=== PATIENT | female | born 1970 | race Caucasian/White ===

== ENCOUNTER 2018-09-10 18:45 | Emergency (ER) | payer BC ==
[2018-09-10 18:55] VITALS: BP 138/82
[2018-09-10] MEDS ORDERED: Al Hydrox/Mg Hydrox/Simet LIQ* 30 ML UDC PO ONE (19:05)
[2018-09-10] MEDS ORDERED: Lidocaine 2% VISCOUS* 15 ML UDC PO ONE (19:05)
--- NOTE | 2018-09-10 19:37 | ED ---
Abdominal Pain/Female - HPI Summary HPI Summary: Ms. Hanson presents with about 22 hours of abdominal pain. It comes in waves of pain that last a few seconds and are coming every 5 minutes. She points to her epigastrium. She has been nauseated with this. She tried to eat earlier today but vomited immediately. She's not had any change in bowels or bladder she has no history of surgery or medications. - History of Current Complaint Chief Complaint: UCAbdominalPain Stated Complaint: ABD PAIN Time Seen by Provider: 09/10/18 18:53 Hx Obtained From: Patient Hx Last Menstrual Period: 2 WEEKS AGO Onset/Duration: Gradual Onset Severity Initially: Mild Severity Currently: Moderate - He doesn't use Pain Intensity: 3 Aggravating Factor(s): Food Alleviating Factor(s): Nothing Associated Signs and Symptoms: Positive: Negative Allergies/Adverse Reactions: Allergies Allergy/AdvReac Type Severity Reaction Status Date / Time No Known Allergies Allergy Verified 09/10/18 18:54 Home Medications: Home Medications NK [No Home Medications Reported] 09/10/18 [History Confirmed 09/10/18] PMH/Surg Hx/FS Hx/Imm Hx - Cancer History Hx Chemotherapy: No Hx Radiation Therapy: No Infectious Disease History: No Infectious Disease History: Denies: Traveled Outside the [place] in Last 30 Days - Social History Alcohol Use: Occasionally Substance Use Type: Reports: None Smoking Status (MU): Never Smoked Tobacco Review of Systems Constitutional: Negative Respiratory: Negative Positive: Abdominal Pain, Vomiting, Nausea Genitourinary: Negative Skin: Negative Neurological: Negative Psychological: Normal All Other Systems Reviewed And Are Negative: Yes Physical Exam - Summary Physical Exam Summary: .She is non-toxic in appearance with stable vitals signs. Triage Information Reviewed: Yes Vital Signs On Initial Exam: Initial Vitals Temp Pulse Resp BP Pulse Ox 95.2 F 76 16 138/82 100 09/10/18 18:51 09/10/18 18:51 09/10/18 18:51 09/10/18 18:51 09/10/18 18:51 Vital Signs Reviewed: Yes Appearance: Positive: Well-Appearing, Pain Distress - periodically Skin: Positive: Warm, Dry Eyes: Positive: Normal ENT: Positive: Normal ENT inspection Neck: Positive: Supple Respiratory/Lung Sounds: Positive: Clear to Auscultation Cardiovascular: Positive: Normal, Pulses are Symmetrical in both Upper and Lower Extremities Abdomen Description: Positive: Other: - She had only mild tenderness in the epigastrium and LUQ. Malik's was negative. BS's were normal. Bowel Sounds: Positive: Present Musculoskeletal: Positive: Normal Neurological: Positive: Normal Diagnostics - Vital Signs Vital Signs Temp Pulse Resp BP Pulse Ox 09/10/18 18:51 95.2 F 76 16 138/82 100 - Laboratory Lab Statement: Any lab studies that have been ordered have been reviewed, and results considered in the medical decision making process. Abdominal Pain Fem Course/Dx - Course Course Of Treatment: Ms. Hanson presented with 22 hours of abdominal pain. I let her know that there is very little we could do here for abdominal pain but I would try to give her a GI cocktail to see if it improved her symptoms. It did not improve her pain a bit and I recommended strongly that she go to the emergency department for further evaluation. Her description is consistent with a gallbladder problem but her exam is not. She is tender in the abdomen and I do not think this is a cardiac event. - Diagnoses Provider Diagnoses: Abdominal pain Discharge - Sign-Out/Discharge Documenting (check all that apply): Patient Departure All imaging exams completed and their final reports reviewed: No Studies - Discharge Plan Condition: Stable Disposition: HOME-RECOMMEND TO ED Patient Education Materials: Acute Abdominal Pain (ED) Referrals: Clarke Perea MD [Primary Care Provider] - Additional Instructions: Please go directly to the Emergency Department for further evaluation. - Billing Disposition and Condition Condition: STABLE Disposition: Home-Recommend to ED
== END 2018-09-10 19:55 | disposition home health service (06) ==
LOC: UCEAST 18:45
DX: R10.9 Unspecified abdominal pain (principal); R11.2 Nausea with vomiting, unspecified
CPT/HCPCS: 99212; A9270-GY; G0463

== ENCOUNTER 2018-09-10 20:16 | Inpatient (IN) | payer BC ==
[2018-09-10] MEDS ORDERED: Ondansetron INJ* 2 MG/ML VIAL IV ONE (20:40)
[2018-09-10] MEDS ORDERED: Morphine VIAL* 4 MG/ML VIAL (1 ml vial) IV ONE (20:40)
--- NOTE | 2018-09-10 20:46 | ED ---
Abdominal Pain/Female - HPI Summary HPI Summary: This patient is a 48 year old F presenting to [facility] accompanied by her with a chief complaint of worsening, intermittent sharp abdominal pain since 21: 00 yesterday. The patient rates the pain 9/10 in severity. Patient reports nausea, vomiting, difficulty sleeping, difficulty eating, and edema of the abdomen. Patient denies fever, dysuria, hematuria, difficulties passing stool, or CP. She was watching tv when her abd pain began, she felt normal beforehand. The pain continued throughout the night and kept her awake. The patient has not felt like this before. PMHX tonsil removal, nothing else. No PMHx abdominal surgery, abdominal complications. SHX works at an office, 4 children. RX none. NKDA. - History of Current Complaint Chief Complaint: EDAbdPain Stated Complaint: ABD PAIN Time Seen by Provider: 09/10/18 20:27 Hx Obtained From: Patient Hx Last Menstrual Period: 2 WEEKS AGO Onset/Duration: Sudden Onset, Lasting Days - 1 Timing: Intermittent Episode Lasting - a couple minutes to 30 minutes Severity Initially: Severe Severity Currently: Severe Pain Intensity: 9 Pain Scale Used: 0-10 Numeric Location: Diffuse Character: Sharp Associated Signs and Symptoms: Positive: Decreased Appetite, Nausea, Vomiting. Negative: Fever, Chest Pain Allergies/Adverse Reactions: Allergies Allergy/AdvReac Type Severity Reaction Status Date / Time No Known Allergies Allergy Verified 09/10/18 18:54 PMH/Surg Hx/FS Hx/Imm Hx Previously Healthy: Yes - SAYS SHE HAS NO HISTORY - Cancer History Hx Chemotherapy: No Hx Radiation Therapy: No Infectious Disease History: No Infectious Disease History: Denies: Traveled Outside the [place] in Last 30 Days - Family History Known Family History: Negative: Cardiac Disease - Social History Alcohol Use: Occasionally Substance Use Type: Reports: None Smoking Status (MU): Never Smoked Tobacco Review of Systems Negative: Fever Negative: Chest Pain Positive: Vomiting, Nausea Negative: dysuria, hematuria Positive: Edema - abd Neurological: Other - difficulty sleeping All Other Systems Reviewed And Are Negative: Yes Physical Exam - Summary Physical Exam Summary: Appearance: Well-appearing, Well-nourished, lying in bed comfortably Skin: Warm, dry, no obvious rash Eyes: sclera anicteric, no conjunctival pallor ENT: mucous membranes moist, pharynx appears normal Neck: Supple, nontender Respiratory: Clear to auscultation, no signs of respiratory distress Cardiovascular: Normal S1, S2. No murmurs. Normal distal pulses in tibial and radial bilaterally. Abdomen: Soft, NO active bowel sounds present. Abdomen is somewhat distended and diffusely tender. There is mild guarding and no rebound. Musculoskeletal: Normal, Strength/ROM Intact Neurological: A&Ox3, awake and alert, mentation is normal, speech is fluent and appropriate Psychiatric: affect is normal, does not appear anxious or depressed Triage Information Reviewed: Yes Vital Signs On Initial Exam: Initial Vitals Temp Pulse Resp BP Pulse Ox 97.9 F 74 20 101/66 99 09/10/18 20:20 09/10/18 20:20 09/10/18 20:20 09/10/18 20:20 09/10/18 20:20 Vital Signs Reviewed: Yes Diagnostics - Vital Signs Vital Signs Temp Pulse Resp BP Pulse Ox 09/10/18 20:20 97.9 F 74 20 101/66 99 - Laboratory Result Diagrams: 09/11/18 05:09 09/11/18 05:09 Lab Statement: Any lab studies that have been ordered have been reviewed, and results considered in the medical decision making process. Abdominal Pain Fem Course/Dx - Course Course Of Treatment: This patient is a 48 year old F presenting to [facility] accompanied by her with a chief complaint of worsening, intermittent sharp abdominal pain since 21:00 yesterday. The patient rates the pain 9/10 in severity. Patient reports nausea, vomiting, difficulty sleeping, difficulty eating, and edema of the abdomen. Patient denies fever, dysuria, hematuria, difficulties passing stool, or CP. Test results with no significant abnormalities. In the ED course the patient was given Morphine, Ondansetron, and IV fluids. The patient will be signed out by Dr. Mane to Dr. Paz, awaiting CT and urinalysis results. - Diagnoses Provider Diagnoses: Terminal ileitis, Small bowel obstruction Discharge - Sign-Out/Discharge Documenting (check all that apply): Sign-Out Patient Signing out patient TO: Sean Paz - Discharge Plan Condition: Improved Disposition: ADMITTED TO [facility] - Billing Disposition and Condition Condition: IMPROVED Disposition: Admitted to [facility] - Attestation Statements Document Initiated by Scribe: Yes Documenting Scribe: Geronimo Esquivel Provider For Whom Scribe is Documenting (Include Credential): Miki Mane MD Scribe Attestation: I, Geronimo Esquivel, scribed for Miki Mane MD on 09/11/18 at 1826. Scribe Documentation Reviewed: Yes Provider Attestation: The documentation as recorded by the scribe, Geronimo Esquivel accurately reflects the service I personally performed and the decisions made by me, Miki Mane MD Status of Scribe Document: Viewed
[2018-09-10 21:04] LABS: ABS Basophils 0 10^3/ul (0-0.2); ABS Eosinophils 0 10^3/ul (0-0.6); ABS Lymphocytes 0.8 10^3/ul (1.0-4.8); ABS Neutrophils 16.5 10^3/ul (1.5-7.7); ABS Nucleated RBC 0 10^3/ul; Eosinophil % 0.1 %; Hematocrit 42 % (35-47); Hemoglobin 13.4 g/dl (12.0-16.0); Lymphocyte % 4.1 %; Mean Corpuscular HGB Conc 32 g/dl (31-36); Mean Corpuscular Hemoglobin 24 pg (27-31); Mean Corpuscular Volume 76 fL (80-97); Mean Platelet Volume 8.2 fL (7.4-10.4); Nucleated Red Blood Cells % 0; Platelet Count 248 10^3/ul (150-450); Red Blood Count 5.61 10^6/ul (4.00-5.40); Red Cell Distribution Width 17 % (10.5-15); White Blood Count 18.3 10^3/ul (3.5-10.8)
[2018-09-10 21:20] LABS: Albumin 4.5 g/dL (3.2-5.2); Albumin/Globulin Ratio 1.4 (1-3); Calcium 10.6 mg/dL (8.6-10.3); EGFR Non-African American 58.9 (>60); Globulin 3.2 g/dL (2-4); Potassium 4.3 mmol/L (3.5-5.0); Total Bilirubin 0.7 mg/dL (0.2-1.0); Total Protein 7.7 g/dL (6.4-8.9)
[2018-09-10] MEDS: NS 0.9% 1000 ML* 2,000 ML IV ONE (21:40)
[2018-09-10] MEDS ORDERED: Iodixanol* (CONTRAST) 320 MG/ML 100 ML SDV IV ONE (21:42)
[2018-09-10 21:55] LABS: Urine Appearance Cloudy; Urine Bacteria Absent (Absent); Urine Bilirubin Negative (Negative); Urine Blood Negative (Negative); Urine Color Amber; Urine Glucose Negative (Negative); Urine Ketones 1+ (Negative); Urine Nitrite Negative (Negative); Urine Protein 2+(100 mg/dL) (Negative); Urine Red Blood Cell Absent (Absent); Urine Specific Gravity 1.033 (1.010-1.030); Urine Urobilinogen Negative (Negative); Urine White Blood Cell Absent (Absent)
--- NOTE | 2018-09-10 21:58 | ED ---
Progress - Progress Note Progress Note: Receiving sign out from Dr. Mane, pending UA and CT A/P. CT A/P: 1. Small bowel obstruction with a point of transition at the ileocecal valve and terminal ileum. There is eccentric enhancement and slight thickening of the posterior wall of the terminal ileum of uncertain etiology with adjacent narrowed lumen. Findings may reflect ileitis with small mural abscess. Carcinoid is not excluded. This does not appear to reflect an impacted foreign body. 2. Minimal free fluid which is probably reactive. 3. Question of antral gastritis although may reflect incomplete distention. 4. Colonic diverticulosis without diverticulitis. ED physician reviewed radiology report. Final dx are terminal ileitis and small bowel obstruction. Pt will be admitted to Dr. Deluna. Course/Dx - Course Course Of Treatment: Nurse's notes reviewed. I assumed care from previous ER physician. She patient was pending a CT scan. There is evidence of small bowel obstruction with lead point at the terminal ileum. Patient has no prior history of Crohn's disease or colitis. She's had no major surgeries. Discussed the case with the surgeon who will see in consultation. Recommended antibiotics and admission to hospitalist service for medical evaluation including GI consultation. - Diagnoses Provider Diagnoses: Terminal ileitis, Small bowel obstruction - Provider Notifications Discussed Care Of Patient With: Esvin Fine Time Discussed With Above Provider: 23:11 Instructed by Provider To: Other - Dr. Fine will see the pt in consult, and he advises a hospitalist consult. At 23:[address] Deluna who accepts pt for admission. Discharge - Sign-Out/Discharge Documenting (check all that apply): Patient Departure - Admit, Receiving Sign- Out Receiving patient FROM: Miki Mane - Discharge Plan Condition: Fair Disposition: ADMITTED TO [facility] - Billing Disposition and Condition Condition: FAIR Disposition: Admitted to [facility] - Attestation Statements Document Initiated by Scribe: Yes Documenting Scribe: Deanne Vasquez Provider For Whom Alvin is Documenting (Include Credential): Sean Paz MD Scribe Attestation: Deanne Contreras scribed for Sean Paz MD on 09/11/18 at 0039. Scribe Documentation Reviewed: Yes Provider Attestation: The documentation as recorded by the Deanne hughes accurately reflects the service I personally performed and the decisions made by me, Sean Paz MD Status of Scribe Document: Viewed
[2018-09-10] MEDS ORDERED: Ciprofloxacin 400MG IVPREMIX(* 400 MG/200 ML BAG IVPB ONE (23:08)
[2018-09-10] MEDS ORDERED: metroNIDAZOLE IV 500 MG/100ML* 500 MG/100 ML BAG IVPB ONE (23:08)
[2018-09-10] MEDS ORDERED: Morphine INJ* 2 MG/ML 1 ML SYRINGE (TWO MG - NEW SYRINGE VERSION) IV PRN (23:48)
[2018-09-10] MEDS ORDERED: Ondansetron INJ* 2 MG/ML VIAL IV PRN (23:48)
[2018-09-10] MEDS ORDERED: Morphine VIAL* 4 MG/ML VIAL (1 ml vial) IV PRN (23:55)
[2018-09-10] MEDS ORDERED: PROCHLORPERAZINE INJ 5 MG/ML 2 ML VIAL IV PRN (23:58)
[2018-09-11 00:12] LABS: C Reactive Protein 7.66 mg/L (<8.01)
[2018-09-11 00:38] LABS: Erythrocyte Sed Rate 8 mm/Hr (0-14)
[2018-09-11] MEDS ORDERED: Pantoprazole IV* 40 MG IV SCH (01:00)
[2018-09-11] MEDS: NS 0.9% 1000 ML* 1,000 ML IV SCH ×2 (01:45→08:16)
--- NOTE | 2018-09-11 02:19 | HP ---
CC: Clarke Perea MD * HISTORY AND PHYSICAL: DATE OF ADMISSION: 09/10/18 TIME OF EVALUATION: 2300. PRIMARY CARE PHYSICIAN: Clarke Perea MD CHIEF COMPLAINT: Abdominal pain, nausea and vomiting. HISTORY OF PRESENT ILLNESS: This is a 48-year-old female with an unremarkable past medical history who comes to the emergency room with acute onset of abdominal pain, found to have a small bowel obstruction. The patient states around last evening around 9 p.m., she began with increasing gas and then starting having periumbilical abdominal pain radiating up to the epigastric region. She said it would come in waves and then the pain increase in frequency and intensity. She states just prior to 9 p.m., she had a rather explosive diarrhea event, just 1 episode, no blood and has not had a bowel movement since then or any gas either. She has had normal bowel movements up until then. No issues with bowel movements in the past, no blood in her stool. She states she has gained about 10 pounds and attributed due to the holidays. She has had nausea and vomiting, she is not currently nauseous at this time. She denies any fever, no URI illness, no chest pain, no shortness of breath, no urinary symptoms, no rash, no joint aches, no mouth sores, otherwise review of systems is negative. No one else in the family had similar symptoms of diarrhea. In the emergency room, the patient had labs and imaging. She was given a liter of fluid, Zofran, morphine, Cipro and Flagyl. Dr. Fine was contacted and recommended hospitalist admission. PAST MEDICAL HISTORY: Unremarkable. PAST SURGICAL HISTORY: Tonsillectomy at age 7. MEDICATIONS: None. ALLERGIES: No known drug allergies. FAMILY HISTORY: Parents are alive and healthy, no history of IBD in the family. SOCIAL HISTORY: The patient lives at home with her 3 kids. Her fourth child is grown. All of her deliveries were vaginal. She is not a smoker, occasional alcohol use, no illicit drug use. 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 REVIEW OF SYSTEMS: A 14-point review of systems as mentioned in the HPI, otherwise negative. PHYSICAL EXAMINATION GENERAL: No acute distress, resting comfortably. VITAL SIGNS: Temp 97.9, pulse rate is 68, respiratory rate is 14, oxygen saturation is 98% on room air, and blood pressure is 119/76. HEENT: Head is normocephalic. Pupils are equal, reactive, and anicteric. Oropharynx, mucous membranes dry. NECK: Supple. No lymphadenopathy. RESPIRATORY: Clear to auscultation, no wheezing, rhonchi or rales. CARDIAC: Regular rate and rhythm. Soft systolic murmur heard throughout. ABDOMEN: Hypoactive bowel sounds present. Abdomen is distended, soft, and diffuse tenderness, mainly in the periumbilical region. EXTREMITIES: No clubbing, cyanosis, or edema. 2+ DP. NEUROLOGIC: Alert and oriented x3. No gross focal neurological deficits. LABORATORY DATA: White count 18.3, hemoglobin 13.4, hematocrit 42, platelets 248. Sodium 138, potassium 4.3, chloride 98, bicarb 26, BUN 13, creatinine 1, glucose 145, total bili 0.7, AST 24, ALT is 19, alkaline phosphatase is 63, lipase is 15. UA shows specific gravity of 1.033, +2 protein, +1 ketones. Calcium oxalate crystals present. Radiographic imaging: CT of the abdomen and pelvis, small bowel obstruction with a point of transition at the ileocecal valve and terminal ileum, there is eccentric enhancement with slight thickening on the posterior wall of the terminal ileum of uncertain etiology with adjacent narrowed lumen, findings may reflect ileitis with small mural abscess, carcinoid is not excluded, does not reflect impacted foreign body. ASSESSMENT: This is a 48-year-old female with unremarkable past medical history , who presents to the emergency room with acute onset of abdominal pain, nausea , vomiting and found to have a small bowel obstruction. 1. Abdominal pain, nausea and vomiting. Assessment: The patient's findings are consistent with terminal ileitis with a bowel obstruction, concerning for possible carcinoid. She does have an elevated white count. The rather acute onset with no prodromal presentation rules against irritable bowel disease. She has never had abdominal surgery in the past. As mentioned could be a carcinoid or other type of mass contributing to inflammation and obstruction. Plan: We will admit her to short stay, continue on IV fluids. Keep her n.p.o. We will hold off on NG tube at this time as she is no longer nauseated. We will continue on the Cipro and Flagyl. Repeat her labs in the morning. We will check her inflammatory markers, we will add those on and follow up with Surgery for consultation in the morning as well and continue her on pain control. 2. Fluids, electrolytes and nutrition. NPO with IV fluids. 3. DVT prophylaxis. The patient scores a low risk of 1. We will place her on SCDs. 4. Code status. Full code. PATIENT TIME: Greater than 40 minutes was spent doing the history and physical , more than half the time spent in direct patient contact. [id number]/[facility] #: [id number] KAT
[2018-09-11 05:38] LABS: ABS Basophils 0 10^3/ul (0-0.2); ABS Eosinophils 0 10^3/ul (0-0.6); ABS Lymphocytes 0.6 10^3/ul (1.0-4.8); ABS Monocytes 0.8 10^3/ul (0-0.8); ABS Neutrophils 5.7 10^3/ul (1.5-7.7); ABS Nucleated RBC 0 10^3/ul; Eosinophil % 0.2 %; Hematocrit 35 % (35-47); Hemoglobin 11.4 g/dl (12.0-16.0); Lymphocyte % 9.1 %; Mean Corpuscular HGB Conc 32 g/dl (31-36); Mean Corpuscular Hemoglobin 24 pg (27-31); Mean Corpuscular Volume 75 fL (80-97); Mean Platelet Volume 8.1 fL (7.4-10.4); Nucleated Red Blood Cells % 0.1; Platelet Count 195 10^3/ul (150-450); Red Blood Count 4.68 10^6/ul (4.00-5.40); Red Cell Distribution Width 17 % (10.5-15); White Blood Count 7.1 10^3/ul (3.5-10.8)
[2018-09-11 05:59] LABS: Albumin 3.4 g/dL (3.2-5.2); Albumin/Globulin Ratio 1.7 (1-3); Calcium 8.2 mg/dL (8.6-10.3); EGFR Non-African American 76.2 (>60); Total Bilirubin 0.6 mg/dL (0.2-1.0); Total Protein 5.4 g/dL (6.4-8.9)
[2018-09-11] MEDS: metroNIDAZOLE IV 500 MG/100ML* 500 MG/100 ML BAG IVPB SCH ×2 (08:17→17:39)
[2018-09-11] MEDS ORDERED: Ciprofloxacin 400MG IVPREMIX(* 400 MG/200 ML BAG IVPB SCH (11:00)
[2018-09-11 18:12] VITALS: BP 122/70
--- NOTE | 2018-09-11 20:36 | CONS ---
CC: Dr. Perea, Family Medicine * SURGICAL CONSULT NOTE: DATE OF CONSULT: 09/11/18 ATTENDING SURGEON: Dr. Mike Robles. CHIEF COMPLAINT: Small bowel obstruction. HISTORY OF PRESENT ILLNESS: This is a 48-year-old generally healthy female, who beginning the evening of 09/09/18 noted onset of mid abdominal pain. She describes this as a gas sensation that occurred in waves and with gradual increase in frequency and severity. Pain remained pretty much in the mid abdomen. It was associated with some nausea and eventually vomiting of bilious emesis. She did not sleep well the night of 09/09/18 and eventually went to the [facility] on 09/10/18. She had had 1 loose stool at home prior to onset of pain and then no bowel movements until admission nor was she passing any flatus. She has not had any prior similar episodes. No recent travel history and no history of prior abdominal surgeries. At its peak, her pain was rated at 9/10 and at present 1- 2/10. Since admission, her pain has pretty much abated and she has had 5 to 6 loose semi-formed stools. She was unable to differentiate if she had passed flatus, but later in the day per the hospitalist, she was passing flatus in addition to stool. There is no family history of inflammatory bowel disease. The patient has not had a screening colonoscopy, but was anticipating that within the coming year. PAST MEDICAL HISTORY: Unremarkable for any chronic medical problems other than mild chronic iron-deficiency anemia (she does have heavy periods, and has had mild iron-deficiency anemia for many years). PAST SURGICAL HISTORY: Her only previous surgery is tonsillectomy remotely. CURRENT MEDICATIONS: Ferrous sulfate 1 tablet every other day. DRUG ALLERGIES: None known. FAMILY HISTORY: As above. SOCIAL HISTORY: The patient is . She has 4 children, 3 of which live at home. 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 Remainder of social history, see admission history and physical. REVIEW OF SYSTEMS: As per admission history and physical and HPI. In addition , she is due for breast exam and mammogram. Pelvic exam and Pap smear both which were last done approximately 2 years ago. No other additions to review of systems. PHYSICAL EXAM: Height 5 feet 8 inches, weight 164 pounds, temperature 98, blood pressure 125/71, pulse 68, respirations 16, room air saturation 98%. General: Well-nourished, well-appearing female, in no acute distress. She appears comfortable, lying on the bed. Skin: Warm and dry. No suspicious rashes or lesions noted. HEENT: Pupils are equal and round, reactive. EOMs intact. Mild conjunctival pallor. Oropharynx: Mucous membranes moist. No intraoral lesions. Neck: No lymphadenopathy, thyromegaly, or masses. Heart: Regular rate and rhythm. No murmur appreciated. Lungs: Clear to auscultation. No rales or wheezes. Breasts: Not examined. Abdomen: There is a small bulge visible at the umbilicus, but difficult to tell by palpation if there is an actual hernia present. It is nontender. She states that her abdomen is nondistended. Bowel sounds are present, but are somewhat hypoactive. Abdomen is soft with mild tenderness in the lower mid abdomen only. The remainder of the abdomen is soft, nontender, without peritoneal signs , masses, or organomegaly. There are no palpable inguinal hernias. Genitalia and Rectal: Not done. Back: No spinous processes or CVA tenderness. Extremities: No edema. Neurological: Grossly intact. DIAGNOSTIC STUDIES/LAB DATA: White blood cell count on admission 18,300 down to 7100 this morning, hemoglobin on admission 13.4 down to 11.4 this morning, presumably related to IV hydration. Her RBC indices do reflect microcytic hypochromic anemia. CRP was normal at 7.7. Urinalysis showed specific gravity of 1.033, 2+ protein, and 1+ ketones. CT scan of the abdomen and pelvis with IV contrast only showed dilated small bowel loops throughout the abdomen with an apparent transition point in the terminal ileum where there is an increased density possibly within the wall of the ileum, though the appendix was not identified separately. There are no associated inflammatory changes. There is a small amount of free fluid around the liver. There are a few diverticula in the sigmoid colon, but no evidence of diverticulitis. IMPRESSION: Small bowel obstruction, resolving. PLAN: Case will be discussed with the hospitalist. It should be safe to give her clear liquids and if these are well tolerated, she can be discharged with office followup including discussion for colonoscopy to get a look at the terminal ileum if possible. The patient understands these recommendations. She was also seen subsequently by Dr. Robles to confirm findings and recommendations. LEANDRA RIVERA [id number]/[facility] #: [id number] [facility], MANHATTANRenaldo
--- NOTE | 2018-09-12 01:04 | DS ---
CC: Dr. Clarke Perea; Dr. Mike Robles * DISCHARGE SUMMARY: DATE OF ADMISSION: 09/10/18 DATE OF DISCHARGE: 09/11/18 PRIMARY CARE PROVIDER: Dr. Clarke Perea. GENERAL SURGEON: Dr. Mike Robles. ATTENDING PHYSICIAN: Dr. Michelle Fernández * (dictated by Aidee Ybarra NP) PRIMARY DIAGNOSIS: Small bowel obstruction. SECONDARY DIAGNOSIS: None. STUDIES WHILE IN THE HOSPITAL: 1. Abdomen, pelvis CT, on 09/10/18 reads as: Small-bowel obstruction with the point of transition at the ileocecal valve and terminal ileum. There is eccentric enhancement and slight thickening of the posterior wall of the terminal ileum of uncertain etiology with adjacent narrowed lumen. Findings may reflect ileitis with a small mural abscess. Carcinoid is not excluded. This does not appear to reflect an impacted foreign body. Minimal free fluid, which is probably reactive. Question of antral gastritis, although this may reflect incomplete distention. Colonic diverticulosis without diverticulitis. CONSULTATIONS WHILE IN THE HOSPITAL: 1. The patient was seen in consultation by Dr. Robles from General Surgery on for a small-bowel obstruction. HISTORY OF PRESENT ILLNESS AND HOSPITAL COURSE: Ms. Hanson is a 48-year-old with no significant medical history, who presented to the emergency room on 09/28 with complaints of abdominal pain, nausea, and vomiting. Please see the history and physical by Dr. Deluna for complete summary of the events leading up to this hospitalization. In short, the patient started having acute-onset abdominal pain the night prior, she described the pain as epigastric and radiating and said it would come in waves. She had 1 episode of diarrhea at that point and then no bowel movement after that. She notes that she has recently gained approximately 10 pounds. She has no history of any abdominal surgeries and has never had a colonoscopy. General Surgery was consulted and they recommended admission. In the emergency room, she was noted to have leukocytosis with a white blood count of 18.3 and other labs were essentially unremarkable. She was admitted by the hospitalist service. As of today, the patient reports feeling better. She has been able to tolerate a clear liquid diet. She reports multiple bowel movements, the most recent of which was around 1600 and she notes that that was formed. She reports that she has been passing gas and does not feel distended. She denies any abdominal pain and has minimal tenderness to the epigastric region on deep palpation. She had been given ciprofloxacin and Flagyl in the emergency room, though those have not been continued. Her white blood count today corrected to 7.1. It is unlikely that her leukocytosis on admission was reflective of infectious process but rather an inflammatory process due to her small-bowel obstruction. The patient understands that there is significant concern for her small-bowel obstruction as she never had any sort of abdominal surgery and the CT scan show findings concerning for neoplasm. I have spoken with Dr. Robles and he advises that the patient is stable for discharge from his standpoint though that she will need a colonoscopy as an outpatient. He advised that she may follow up with him if she chooses. He agreed that there was no indication for antibiotics at this point and recommended that the patient advance her diet slowly. The patient is anxious to return home. Ms. Hanson is stable for discharge today. Vital signs are as follows. Temperature 97.8, heart rate 71, respiratory rate 16, oxygen saturation 97% on room air, blood pressure 122/70. DISCHARGE MEDICATIONS: None. DISCHARGE PLAN: Ms. Hanson will be discharged to home. Activity will be as tolerated. Diet will be clear liquids, advancing slowly to full liquids and then a soft diet. She has been given printed information on these diets. She should follow up with her primary care provider in 4 to 7 days. She may also follow up with Dr. Robles in his office. She has been advised that she should speak with her primary care provider to get set up for an outpatient colonoscopy in the near future due to the concern for colon cancer. She has been advised to return to the emergency room or nearest hospital for any worsening of symptoms, shortness of breath, lightheadedness, dizziness, chest discomfort, high fevers, chills, night sweats, loss of consciousness or any other worrisome signs or symptoms. This is a summarized report of a complex medical history and hospital stay. For further details, please see the entire medical record. TIME SPENT: Approximately 35 minutes was spent on this discharge. AIDEE YBARRA NP [id number]/[facility] [place] #: [id number] KAT
== END 2018-09-11 18:20 | disposition home or self-care (01) | DRG 247 ==
LOC: ED 20:16 → SSU 23:48
PROVIDERS: ADMIT Pediatrics; ATTEND Internal Medicine
DX: K56.609 Unspecified intestinal obstruction, unspecified as to partial versus complete obstruction (principal); D50.0 Iron deficiency anemia secondary to blood loss (chronic); K57.30 Diverticulosis of large intestine without perforation or abscess without bleeding
CPT/HCPCS: 36415; 74177; 80053; 81003; 81015; 83690; 85025; 85652; 86140; 99283; J0744; J2270; J2405; J3490; Q9967